=== PATIENT | male | born 1960 | race American Indian/Alaskan Native ===

== ENCOUNTER 2016-07-15 11:14 | Outpatient (CLI) | payer BC ==
--- NOTE | 2016-07-15 13:40 | Magnetic Resonance Report ---
MRI scan of cervical spine: History: Cervical disc disorder with radiculopathy. Technique: Multiplanar multisequence images were obtained without contrast injection. Findings: Loss of cervical lordosis with reversal of curvature. Normal pre-and paravertebral soft tissue. The cerebellar tonsils are normal. Normal height and signal intensity of vertebral bodies 2 decrease in signal intensity of C4 C5, C5-C6 and C6-C7 with evidence of cervical spondylosis. C1-C2. Normal. C2-C3. Normal. C3-C4. Mild bilateral neural foramina narrowing secondary to disc osteophyte complex and uncovertebral joint hypertrophy. The facet joints appears unremarkable. No central canal spinal stenosis. Effacement of the ventral aspect of the subarachnoid space. C4-C5. Moderate bilateral neuroforaminal narrowing secondary to disc osteophyte complex and uncovertebral joint hypertrophy and facet joint hypertrophy. Effacement of the ventral aspect of subarachnoid space with mild central canal spinal stenosis. C5-C6. Bilateral severe neuroforaminal narrowing secondary to disc osteophyte complex and uncovertebral joint hypertrophy and facet joint hypertrophy. Mild central canal spinal stenosis. C6-C7. Posterior central disc protrusion 5 to 7:00 o'clock with bilateral moderate neuroforaminal narrowing and mild central collapse spinal stenosis. Degenerative facet joints. No evidence of edema or hemorrhage in the spinal cord. Impression: Multilevel bilateral neural foraminal narrowing and central canal spinal stenosis as detailed above. No definite evidence of cord edema or hemorrhage.
== END 2016-07-15 11:15 | disposition home or self-care (01) ==
LOC: SPVIMAG 11:14
PROVIDERS: ATTEND Internal Medicine
DX: M48.02 Spinal stenosis, cervical region (principal); M47.892 Other spondylosis, cervical region; M25.78 Osteophyte, vertebrae
CPT/HCPCS: 72141